=== PATIENT | female | born 1955 | race Caucasian/White ===

== ENCOUNTER 2022-07-11 15:09 | Emergency (ER) | payer MEDICARE, BC, SELFPAY ==
[2022-07-11 15:15] VITALS: BP 145/84; PULSE 81; RESP 20; O2SAT 99; BMI 25.4
--- NOTE | 2022-07-11 15:43 | ED_ITS ---
HPI - Back Pain/Injury General Date Seen: 07/11/22 Chief Complaint: Back Injury/Pain Stated Complaint: HIP/LOWER BACK INJURY Time Seen by Provider: 07/11/22 15:13 Source: patient and family Mode of arrival: ambulatory Limitations: no limitations History of Present Illness HPI Narrative: Patient is a very in nice 67-year-old female who presents here with her significant other with right-sided discomfort of her lower back. This came on yesterday while she was picking corn. And became worse today. She does not describe or endorse any significant sciatic type discomfort numbness and tin gling going to her lower extremity. She has a history of a previous herniated disc greater than 10 years ago with sciatica. She says maybe a little bit of radiation to the right frontal area of her thigh. There is no numbness or altered sensation, she denies any bowel or bladder component with this. Last night she had some mild discomfort of her right lower quadrant also. Which she describes as her normal gas. Her bowels and bladder have been normal bowel movements no dysuria frequency, she denies any history of blood in her urine. She has had no fevers or chills is been eating otherwise normal. She describes no weakness in her lower extremities. The pain when he head of precision targeting her she describes is 8 or 9/10, she took some ibuprofen yesterday which she normally does not use cut she has a history of gastric erosions. She took Tylenol today and it did seem to work as well. She is currently icing. Very loving partner is with her today. MD elicited complaint: back pain Pertinent past history: prior back pain Onset (ago): day(s) Severity: moderate Similar Symptoms Previously: Yes Quality: sharp Related Data Allergies Allergy/AdvReac Type Severity Reaction Status Date / Time bee venom protein (honey bee) Allergy Verified 07/11/22 15:15 Review of Systems Status of ROS: Reports: 10 or more systems reviewed and unremarkable except as noted in History and below PFSH PFS Social History Smoking Status: Never smoker Do you use any of these nicotine containing products: None Second hand tobacco smoke exposure: Yes (child) How often do you have a drink containing alcohol: never How often do you have six or more drinks on one occasion: Never AUDIT-C Alcohol total score: 0 Non-prescribed substance use: denies use service: No Exam Narrative: Exam Narrative: On examination she is in no apparent distress she has a normal body habitus, she is initially sitting in the chair, was able to stand, but she is bent over offloading her right leg of note. She is able to move forward flex with her hands to her mid smith, and come back up almost to neutral. But this does cause her some discomfort. He is able to heel walk and toe walk for me in the room. Straight leg raising are negative to 90? bilaterally and lying/supine she can come to 75?. Internal external rotation of her right hip is normal. With a negative Rovsing sign, reflexes are 0-4 her knees and ankle, EHLs great toe flexors ankle dorsiflexors plantar flexors knee flexors 10 sirs and hip flexors are graded 5/5 power bilaterally and her sensation is normal over lower extremities. She has what appears to be reactive scoliosis of her right lower back region. Some mild tenderness, and redness where she was icing. No percussion tenderness is noted over the spine. Her gross perianal sensation is normal. Abdominal examination was very mild tenderness of the right 1st his left lower quadrant. Bowel sounds are normal. There is no masses or hernias noted. No organomegaly. No pulsatile aortic masses are noted. Skin reveals no evidence Const: Vital Signs, click to edit/add: Vital Signs - 24 hr 07/11/22 15:15 Pulse Rate [Pulse Oximeter] 81 Respiratory Rate 20 Blood Pressure [Le ft Upper Arm] 145/84 H Pulse Oximetry 99 Oxygen Delivery Me thod Room Air Documenting provider has reviewed patient's vital signs: yes Course Vital Signs Vital signs: Initial Vital Signs Temperature Source Temporal Artery Scan 07/11/22 15:15 Pulse Rate 81 07/11/22 15:15 Pulse Rhythm 07/11/22 15:15 Respiratory Rate 20 07/11/22 15:15 Blood Pressure 145/84 H 07/11/22 15:15 Blood Pressure Mean 104 07/11/22 15:15 Blood Pressure Position Sitting 07/11/22 15:15 Pulse Oximetry 99 07/11/22 15:15 Oxygen Delivery Method 07/11/22 15:15 Vital Signs Pulse Rate 81 07/11/22 15:15 Respiratory Rate 20 07/11/22 15:15 Blood Pressure 145/84 H 07/11/22 15:15 Pulse Oximetry 99 07/11/22 15:15 Oxygen Delivery Method 07/11/22 15:15 Pulse Rate 81 07/11/22 15:15 Respiratory Rate 20 07/11/22 15:15 Blood Pressure 145/84 H 07/11/22 15:15 Pulse Oximetry 99 07/11/22 15:15 Oxygen Delivery Method 07/11/22 15:15 MDM - Back Pain/Injury MDM Narrative Medical decision making narrative: Life-threatening differential diagnosis considered include: Cauda equina an epidural abscess, other differential diagnosis considered includes sprain, contusion, nerve root entrapment, radiculopathy, muscle spasm, urolithiasis, lumbar fracture, pyelonephritis, appendicitis, biliary colic, as well as other etiologies. The patient denies saddle anesthesia bowel or bladder incontinence or lower extremity weakness, recent weight loss, or history of malignancy. Given her examination and history I think this is more likely back related, disc verses mechanical low back pain. I do not think this is related to appendicitis although she does have some mild tenderness in the right lower quadrant. A retrocecal appendix can present much the same way. I counseled her that she should watch this, she is having increasing right lower quadrant pain, anorexia, fevers chills nausea vomiting or worsening pain. We will need to get that checked out. I did offer here to do a CT scan and further workup but she declined. We discussed treatment for the back related issues, she did not want narcotics, she cannot take NSAIDs, but was agreeable to try some Flexeril. Risks benefits and side effects of this discussed. Had previously been on glucocorticoids for her back related issues and does not like the side effects. She may use Tylenol with Flexeril. Differential Diagnosis Differential diagnosis: Likely lumbar radiculopathy, sciatica, strain of lumbar region, renal colic, pyelonephritis, thoracic back pain, AAA and discitis Medical Records Attestation: I reviewed the patient's medical records. Discharge Plan Discharge Clinical Impression: Strain of lumbar region Patient Disposition: Home w/ Parent or Adult Condition: Stable Instructions: Abdominal Pain (ED), Back Pain (ED) Additional Instructions: Home rest use of Flexeril ice, may use Tylenol with this. Graded activity but decrease her activity for the next 3-4 days, increasing abdominal pain fevers chills, numbness tingling weakness bowel or bladder symptoms then I think follow-up will be needed earlier rather than later and in the emergency room. Otherwise follow-up with Dr. Shiloh Esparza, and 1-2 weeks if ongoing signs and symptoms. Activity Level: Light activity Follow Up/Referrals: Ada Beltrán MD [Primary Care Provider] - Stand Alone Forms: [employer] Info Instructions
== END 2022-07-11 16:10 | disposition home or self-care (01) ==
PROVIDERS: Emergency Provider Family Medicine; PCP Family Medicine
DX: S39.012A Strain of muscle, fascia and tendon of lower back, initial encounter (principal)
CPT/HCPCS: 99284

== ENCOUNTER 2023-11-16 02:29 | Emergency (ER) | payer MEDICARE, BC, SELFPAY ==
[2023-11-16 02:32] VITALS: BP 181/87; PULSE 99; RESP 16; TEMP 36.6; O2SAT 98; BMI 26.6
--- NOTE | 2023-11-16 02:45 | ED.GENADULT ---
HPI - General Adult General Chief complaint: Abdominal Pain Stated complaint: lower left abdominal pain Time Seen by Provider: 11/16/23 02:45 History of Present Illness HPI narrative: diarrhea X4 days off and on , went to sleep and then awoke around 0100 and felt her heart was pounding and LLQ of abd. painful/achy, concerned about diverticulitis due to having a pouch in bowel. 68-year-old woman presenting to the emergency department concern of left lower abdominal pain. Admittedly this is an area of discomfort that she presumes to be gas historically that has come and gone for years. After experiencing some heartburn about 5 days ago post holiday meal has had intermittent yellowish diarrhea since. She has been pushing fluids in feels she has managed to stay up on hydration. 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 Most pain now seems to be hemorrhoids she says. Have been bleeding. This is known. After doing some online reading in calling to insurance who advised to be seen, she has concerns about potential diverticulitis. No concerning ingestions otherwise. No fever. The pain that she had in the left lower abdomen has lessened. Historically at tends to radiate around to her back somewhat. She does not describe exacerbating or relieving factors. 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 On colonoscopy in the past she thinks there was a diverticulum Most concerning is that apparently her father apparently had severe complications from diverticular disease Related Data Home Medications Medication Instructions Recorded Confirmed famotidine 20 mg tablet (Pepcid AC) 20 mg PO BID 11/16/23 11/16/23 Allergies Allergy/AdvReac Type Severity Reaction Status Date / Time bee venom protein (honey bee) Allergy Verified 07/11/22 15:15 Review of Systems Status of ROS: Reports: 6 or more systems reviewed and unremarkable except as noted in History and below [facility] Social History Smoking Status: Never smoker Do you use any of these nicotine containing products: None Second hand tobacco smoke exposure: Yes (child) How often do you have a drink containing alcohol: never How often do you have six or more drinks on one occasion: Never AUDIT-C Alcohol total score: 0 Non-prescribed substance use: denies use service: No Exam Narrative: Exam Narrative: Pleasantly talkative. Transitioning clearly uncomfortably. Oropharynx is sticky. Lungs are clear. Heart in elevated rate and regular rhythm. Abdomen with bowel sounds present. She diffusely soft and not particularly tender. There is no flank pain either. Rectal/anal exam was not done. Extremities are well perfused without edema. Skin is warm and dry. Moving all extremities without difficulty; only challenged in transition because of hemorrhoids being flared she says. Const: Vital Signs, click to edit/add: Vital Signs - 24 hr 11/16/23 02:32 Temperature 97.9 F Pulse Rate [Pulse Oximeter] 99 Respiratory Rate 16 Blood Pressure [Ri ght Upper Arm] 181/87 H Pulse Oximetry 98 Oxygen Delivery Me thod Room Air Documenting provider has reviewed patient's vital signs: yes Course Vital Signs Vital signs: Initial Vital Signs Temperature 97.9 F 11/16/23 02:32 Temperature Source Temporal Artery Scan 11/16/23 02:32 Pulse Rate 99 11/16/23 02:32 Respiratory Rate 16 11/16/23 02:32 Blood Pressure 181/87 H 11/16/23 02:32 Blood Pressure Mean 118 H 11/16/23 02:32 Blood Pressure Position Sitting 11/16/23 02:32 Pulse Oximetry 98 11/16/23 02:32 Oxygen Delivery Method Room Air 11/16/23 02:32 Vital Signs Temperature 97.9 F 11/16/23 02:32 Pulse Rate 99 11/16/23 02:32 Respiratory Rate 16 11/16/23 02:32 Blood Pressure 181/87 H 11/16/23 02:32 Pulse Oximetry 98 11/16/23 02:32 Oxygen Delivery Method Room Air 11/16/23 02:32 Temperature 97.9 F 11/16/23 02:32 Pulse Rate 98 11/16/23 04:28 Respiratory Rate 16 11/16/23 04:28 Blood Pressure 161/79 H 11/16/23 04:28 Pulse Oximetry 96 11/16/23 04:28 Oxygen Delivery Method Room Air 11/16/23 04:28 Medications Administered Medications: Discontinued Medications Generic Name Dose Route Start Last Admin Trade Name Freq PRN Reason Stop Dose Admin Sodium Chloride 1,000 mls @ 1,000 mls/hr 11/16/23 03:29 11/16/23 05:02 0.9 % Sodium Chloride 1000 Ml IV 11/16/23 04:28 Infused .Q1H ONE Infusion Medical Decision Making MDM Narrative Medical decision making narrative: I do not know if there was some SVT that occurred this morning or maybe attack of anxiety. I am reassured by abdominal exam at this point. Pain is not exactly reproducible. I think more likely there is some prolonged diarrhea. Certainly could be colitis. Not exactly consistent with diverticulitis. I suppose hemorrhoidal pain could be referring somewhat. I proposed checking labs and depending on white count and inflammatory markers and absent reproducible abdominal pain perhaps this would be enough? After further discussion becomes apparent that will need more sure answer and will proceed with labs fluids and CT imaging. Does not feel she needs anything for nausea or pain at this time. White count is reassuring. Return to discuss. They are still anticipating imaging. Still without need for antiemetic or pain management. We did discuss assessment and potential hemorrhoidectomy/thrombectomy. She is concerned about making things worse. CT imaging abdomen and pelvis IV contrast reviewed by me I appreciate full bladder but not excessive. Appears to have normal bladder wall. There is seems to be some generalized thickening of the wall of the colon. I do not see pericolonic inflammation. Has not had any further event or worsening tachycardia or dysrhythmia Radiology over-read IMPRESSION: 1. Mild pancolonic wall thickening which may be partially due to incomplete distension. However, finding raises suspicion for nonspecific infectious/inflammatory colitis. Query mild more focal circumferential wall thickening of the cecum for which underlying lesion cannot be excluded. Recommend correlation with colonoscopy history. 2. Colonic diverticulosis without evidence of acute diverticulitis. 3. Mild left hydroureteronephrosis without evidence of nephroureterolithiasis. Discussed radiology over-read/findings. Is due this summer for colonoscopy. Clinical picture I think is more consistent with colitis than more indolent or malignant process. Diverticulosis confirmed on imaging. No diverticulitis Blood in urine but no indication of infection otherwise. This may be due to hemorrhoidal or colitis-related bleeding Discussing discharge she would like to have some medications available for pain management if necessary See patient discharge plan Medical Records Medical records reviewed: Yes I reviewed the patient's medical records Lab Data Lab results reviewed: Yes I reviewed the patient's lab results Labs: Lab Results 11/16/23 11/16/23 Range/Units 03:43 04:10 WBC 8.94 (4.50-11.00) K/uL RBC 4.50 (4.00-5.20) m/uL Hgb 12.9 (12.0-16.0) gm/dL Hct 38.5 (33.0-51.0) % MCV 86 (80-100) fL MCH 29 (26-34) pg MCHC 34 (32-36) gm/dL RDW Coeff of Emre 12.6 (11.5-15.5) % Plt Count 261 (140-440) K/uL Neut % (Auto) 78.2 H (42.0-72.0) % Lymph % (Auto) 12.5 L (20-44) % Robeson % (Auto) 7.0 (0.0-11.0) % Eos % (Auto) 1.8 (0.0-7.0) % Baso % (Auto) 0.4 (0.0-3.0) % Neut # (Auto) 7.00 (1.7-7.0) K/uL Lymph # (Auto) 1.10 (0.90-2.90) K/uL [place]eson # (Auto) 0.60 (0.00-0.90) K/UL Eos # (Auto) 0.16 (0.00-0.50) K/uL Baso # (Auto) 0.04 (0.00-0.30) K/uL Abs Immat Gran (auto) 0.01 (0.00-0.30) K/uL Imm/Tot Granulo (auto) 0.1 % Sodium 138 (135-149) mmol/L Potassium 3.9 (3.6-5.1) mmol/L Chloride 105 (96-114) mmol/L Carbon Dioxide 23 (20-32) mmol/L Anion Gap 10 (7-15) mEq/L BUN 16 (7-30) mg/dL Creatinine 0.6 (0.5-1.5) mg/dL Estimated Creat Clear 51.11 Estimated GFR 98 ml/min Glucose 120 H (60-115) mg/dL Calcium 9.5 (8.4-10.6) mg/dL C-Reactive Protein 0.7 (0.5-1.0) mg/dL Urine Color Yellow (Yellow) Urine Appearance Clear (Clear) Urine pH 6.0 (5.0-8.5) Ur Specific [place] <= 1.005 (1.000-1.030) Urine Protein Negative (Negative) Urine Glucose (UA) Negative (Negative) Urine Ketones Negative (Negative) Urine Blood 2+ A (Negative) Urine Nitrite Negative (Negative) Urine Bilirubin Negative (Negative) Urine Urobilinogen 0.2 (0.2-1.0) Ur Leukocyte Esterase Negative (Negative) Urine RBC 0-2 (0-2) Urine WBC 0-2 (0-5) Ur Squamous Epith Cells Few (None-Few) Urine Bacteria None (None) Discharge Plan Discharge Clinical Impression: Colitis, Abdominal pain, Diarrhea Patient Disposition: Home w/ Parent or Adult Condition: Stable Additional Instructions: Focus on hydration. Slow advance of diet over the next couple of days. Diluted juices and soup broths. Crackers, rice, toast. Be seen again otherwise for more severe, intractable vomiting, persistent and worsening abdominal pain, associated fever. Loperamide can be helpful for diarrhea however usually not recommended if there is also fever or associated blood; I think it is hard to tell that there isn't blood associated with this colitis. Jefferson from [facility] Prescriptions: No Action famotidine [Pepcid AC] 20 mg tablet 20 mg PO BID Follow Up/Referrals: Ada Beltrán MD [Primary Care Provider] - Stand Alone Forms: [employer] Info Instructions
--- NOTE | 2023-11-16 03:29 | CRLHL7_ITS ---
For Patients: As a result of the Century Cures Act, medical imaging exams and procedure reports are released immediately into your electronic medical record. You may view this report before your referring provider. If you have questions, please contact your health care provider. INDICATION: Intermittent diarrhea x 4 days-yellow bile like. Woke about 0100 with LLQ pain/achy TECHNIQUE: CT abdomen and pelvis with 81 cc Isovue 370 IV contrast. COMPARISON: CT abdomen pelvis June 08, 2021. FINDINGS: The liver is normal in size, shape and attenuation. Gallbladder and biliary tree are normal. The spleen, adrenal glands and pancreas are within normal limits. Mild left hydroureteronephrosis without evidence of nephroureterolithiasis. Pelvic phleboliths are again noted. No right-sided hydronephrosis. Kidneys appear unremarkable otherwise. No bladder wall thickening. No evidence of bowel obstruction. Mild pancolonic wall thickening which may be partially due to incomplete distension. However, finding raises suspicion for nonspecific infectious/inflammatory colitis. Query mild more focal circumferential wall thickening of the cecum for wedge underlying lesion cannot be excluded. Recommend correlation with colonoscopy history. Colonic diverticulosis without evidence of acute diverticulitis. Appendix appears unremarkable. No significant free fluid and no free air. Pelvic organs are unremarkable. The lower chest is unremarkable. IMPRESSION: 1. Mild pancolonic wall thickening which may be partially due to incomplete distension. However, finding raises suspicion for nonspecific infectious/inflammatory colitis. Query mild more focal circumferential wall thickening of the cecum for which underlying lesion cannot be excluded. Recommend correlation with colonoscopy history. 2. Colonic diverticulosis without evidence of acute diverticulitis. 3. Mild left hydroureteronephrosis without evidence of nephroureterolithiasis. Please note that all CT scans at this facility use dose modulation, iterative reconstruction, and/or weight-based dosing when appropriate to reduce radiation dose to as low as reasonably achievable. Dictated by Chris Cabrera MD @ 11/16/2023 5:16:51 AM (Electronically Signed)
[2023-11-16] MEDS: 0.9 % SODIUM CHLORIDE 1000 ml 1,000 ML IV (03:30)
[2023-11-16 03:51] LABS: Basophils Absolute Auto 0.04 K/uL (0.00-0.30); Basophils Percent Auto 0.4 % (0.0-3.0); Eosinophils Absolute Auto 0.16 K/uL (0.00-0.50); Eosinophils Percent Auto 1.8 % (0.0-7.0); Hematocrit 38.5 % (33.0-51.0); Hemoglobin* 12.9 gm/dL (12.0-16.0); Immature Granulocytes Abs Auto 0.01 K/uL (0.00-0.30); Immature Granulocytes Pct Auto 0.1 %; Lymphocytes Percent Auto 12.5 % (20-44); Mean Corpuscular HGB Conc 34 gm/dL (32-36); Mean Corpuscular Hemoglobin 29 pg (26-34); Mean Corpuscular Volume 86 fL (80-100); Neutrophils Percent Auto 78.2 % (42.0-72.0); Platelet Count* 261 K/uL (140-440); RDW Coefficient of Variation % 12.6 % (11.5-15.5); White Blood Count* 8.94 K/uL (4.50-11.00)
[2023-11-16 03:52] LABS: Slide Review Reflex No
[2023-11-16 04:03] LABS: Chloride* 105 mmol/L (96-114); Potassium* 3.9 mmol/L (3.6-5.1); Sodium* 138 mmol/L (135-149)
[2023-11-16 04:06] LABS: Anion Gap 10 mEq/L (7-15); Blood Urea Nitrogen* 16 mg/dL (7-30); Carbon Dioxide* 23 mmol/L (20-32); Creatinine* 0.6 mg/dL (0.5-1.5); Est. Creatinine Clearance* 51.11; Estimated Glomerular Filt Rate 98 ml/min; Glucose* 120 mg/dL (60-115)
[2023-11-16 04:07] LABS: Calcium* 9.5 mg/dL (8.4-10.6)
[2023-11-16 04:09] LABS: C Reactive Protein* 0.7 mg/dL (0.5-1.0)
[2023-11-16 04:18] LABS: Appearance Urine Clear (Clear); Bilirubin Urine Negative (Negative); Blood Urine 2+ (Negative); Color Urine Yellow (Yellow); Glucose Urine Negative (Negative); Ketones Urine Negative (Negative); Leukocyte Esterase Urine Negative (Negative); Nitrite Urine Negative (Negative); Protein Urine Negative (Negative); Specific Gravity Urine <= 1.005 (1.000-1.030); Urobilinogen Urine 0.2 (0.2-1.0)
[2023-11-16 04:28] VITALS: BP 161/79; PULSE 98; RESP 16; O2SAT 96
[2023-11-16 04:30] LABS: RBC Urine 0-2 (0-2); Squamous Epithelial Cell Urine Few (None-Few); WBC Urine 0-2 (0-5)
--- NOTE | 2023-11-16 05:52 | PC.NURSE ---
patient DC ambulatory accompanied by , pain controlled, patient alert and ambulatory. no further questions about DC instructions from patient or .
== END 2023-11-16 05:51 | disposition home or self-care (01) ==
PROVIDERS: Emergency Provider Family Medicine; PCP Family Medicine
DX: K52.9 Noninfective gastroenteritis and colitis, unspecified (principal); R19.7 Diarrhea, unspecified
CPT/HCPCS: 36415; 74177; 80048; 81001; 85025; 86140; 99284; J7030; Q9967

== ENCOUNTER 2024-12-27 13:45 | Outpatient (RCR) | payer MEDICARE, BC, SELFPAY | END 2025-04-26 23:59 | disposition home or self-care (01) | PROVIDERS: PCP Family Medicine; Visit Provider Student in an Organized Health Care Education/Training Program | DX: M25.561 Pain in right knee (principal); G89.29 Other chronic pain; Z98.890 Other specified postprocedural states; Z51.89 Encounter for other specified aftercare | CPT/HCPCS: 97110; 97161 ==

== ENCOUNTER 2025-02-10 06:31 | Outpatient (CLI) | payer MEDICARE, BC, SELFPAY | END 2025-02-10 06:32 | disposition home or self-care (01) | LOC: AMB 02-13 08:45 | PROVIDERS: PCP Family Medicine; Visit Provider Family Medicine | DX: R07.9 Chest pain, unspecified (principal); R11.0 Nausea | CPT/HCPCS: A0425; A0433 ==

== ENCOUNTER 2025-02-10 07:09 | Emergency (ER) | payer MEDICARE, BC, SELFPAY ==
[2025-02-10] VITALS (14 sets, daily range): BP systolic 163–172; BP diastolic 75–82; PULSE 79–89; RESP 4–51; TEMP 36.4; O2SAT 93–97; BMI 26.1
--- NOTE | 2025-02-10 07:11 | ED.GENADULT ---
HPI - General Adult General Time Seen by Provider: 07:11 <Ish Felix MD - Last Filed: 02/15/25 23:39> Date Seen: 02/10/25 <Ish Felix MD - Last Filed: 02/15/25 23:39> Chief complaint: Chest Pain <Ish Felix MD - Last Filed: 02/15/25 23:39> Stated complaint: Chest pain <Ish Felix MD - Last Filed: 02/15/25 23:39> Time Seen by Provider: 02/10/25 07:11 <Ish Felix MD - Last Filed: 02/15/25 23:39> Source: patient, EMS, RN notes reviewed and old records reviewed <Ish Felix MD - Last Filed: 02/15/25 23:39> Mode of arrival: ambulatory <Ish Felix MD - Last Filed: 02/15/25 23:39> Limitations: no limitations <Ish Felix MD - Last Filed: 02/15/25 23:39> History of Present Illness HPI narrative: 69-year-old female who comes in today with malaise and nausea. patient reports she felt fine when she went to sleep at about 11:00 p.m. last night, woke up around 4:00 a.m. generally not feeling well although vague about her symptoms, nausea without vomiting. Denies chest pain, abdominal pain, numbness or tingling in the arms or legs, weakness, vision changes, difficulty walking, palpitations. Does have a slight generalized headache but says that is normal for her, she also says she frequently gets nausea. Denies any other recent illness, no new medications. <Ish Felix MD - Last Filed: 02/15/25 23:39> Related Data Allergies/adverse reactions: Allergies Allergy/AdvReac Type Severity Reaction Status Date / Time bee venom protein (honey bee) Allergy Verified 02/10/25 07:18 <Ish Felix MD - Last Filed: 02/15/25 23:39> PFSH PFSH Social History: Social History Smoking Status: Never smoker Do you use any of these nicotine containing products: None Second hand tobacco smoke exposure: Yes (child) How often do you have a drink containing alcohol: never How often do you have six or more drinks on one occasion: Never AUDIT-C Alcohol total score: 0 Non-prescribed substance use: denies use service: No <Ish Felix MD - Last Filed: 02/15/25 23:39> Exam Narrative: Exam Narrative: General: Well-developed and well-nourished, no acute distress Head: Atraumatic and normocephalic Eyes: Pupils are equal reactive, extraocular motions intact, conjunctiva clear ENT: External nose and ears are normal, posterior pharynx without erythema or exudate Neck: No midline cervical tenderness, full spontaneous range of motion the neck, trachea midline, no adenopathy Heart: Regular rate and rhythm no murmurs or thrills Lungs: Clear to auscultation bilaterally without wheezes or crackles Abdomen: Soft, nontender, nondistended with active bowel sounds Musculoskeletal: No tenderness, deformity, or edema Neurologic: Awake, alert, and oriented x3, no gross focal neurologic deficits, cranial nerves intact as tested Psych: Mood and affect are appropriate Skin: No rashes <Ish Felix MD - Last Filed: 02/15/25 23:39> Const: Vital Signs, click to edit/add: Vital Signs - 24 hr 02/10/25 07:15 02/10/25 07:27 02/10/25 07:30 Temperature 97.6 F Pulse Rate 79 80 Pulse Rate [Pulse Oximeter] 80 Respiratory Rate 14 11 L 14 Blood Pressure Blood Pressure [Ri ght Upper Arm] 163/75 H Pulse Oximetry 96 93 96 Oxygen Delivery Me thod Room Air 02/10/25 07:52 02/10/25 07:54 02/10/25 08:00 Temperature Pulse Rate 89 83 83 Pulse Rate [Pulse Oximeter] Respiratory Rate 35 H 10 L 4 L Blood Pressure 168/82 H Blood Pressure [Ri ght Upper Arm] Pulse Oximetry 95 96 93 Oxygen Delivery Me thod 02/10/25 08:15 02/10/25 08:30 02/10/25 08:42 Temperature Pulse Rate 88 Pulse Rate [Pulse Oximeter] Respiratory Rate 51 H 33 H 14 Blood Pressure 172/82 H Blood Pressure [Ri ght Upper Arm] Pulse Oximetry 97 Oxygen Delivery Me thod 02/10/25 08:45 Temperature Pulse Rate 80 Pulse Rate [Pulse Oximeter] Respiratory Rate 12 Blood Pressure Blood Pressure [Ri ght Upper Arm] Pulse Oximetry 95 Oxygen Delivery Me thod <Ish Felix MD - Last Filed: 02/15/25 23:39> Vital Signs, click to edit/add: Vital Signs - 24 hr 02/10/25 07:15 02/10/25 07:27 02/10/25 07:30 Temperature 97.6 F Pulse Rate 79 80 Pulse Rate [Pulse Oximeter] 80 Respiratory Rate 14 11 L 14 Blood Pressure Blood Pressure [Ri ght Upper Arm] 163/75 H Pulse Oximetry 96 93 96 Oxygen Delivery Me thod Room Air 02/10/25 07:52 02/10/25 07:54 02/10/25 08:00 Temperature Pulse Rate 89 83 83 Pulse Rate [Pulse Oximeter] Respiratory Rate 35 H 10 L 4 L Blood Pressure 168/82 H Blood Pressure [Ri ght Upper Arm] Pulse Oximetry 95 96 93 Oxygen Delivery Me thod 02/10/25 08:15 02/10/25 08:30 02/10/25 08:42 Temperature Pulse Rate 88 Pulse Rate [Pulse Oximeter] Respiratory Rate 51 H 33 H 14 Blood Pressure 172/82 H Blood Pressure [Ri ght Upper Arm] Pulse Oximetry 97 Oxygen Delivery Me thod 02/10/25 08:45 Temperature Pulse Rate 80 Pulse Rate [Pulse Oximeter] Respiratory Rate 12 Blood Pressure Blood Pressure [Ri ght Upper Arm] Pulse Oximetry 95 Oxygen Delivery Me thod <Josselin Sarmiento MD - Last Filed: 02/10/25 09:38> Course Course ED Course: Reviewed primary care visit from August 2024 which was a Medicare annual physical, at that time was complaining of right thumb pain as well as some various arthralgias. Also noted history of vestibular migraine with lightheadedness managed with meclizine. Patient presents by EMS with vague not feeling well. Nausea with no vomiting. Denies chest pain, shortness of breath, abdominal pain, dizziness, lightheadedness, palpitations. Patient was given aspirin, Zofran 8 mg, fentanyl 100 mcg, droperidol 1.25 mg, and morphine 2 mg in route. On exam here, no focal neurologic findings, patient is vitally stable, heart is regular. Labs ordered along with head CT. <Ish Felix MD - Last Filed: 02/15/25 23:39> Reevaluation(s) Time of Reevaluation #1: 07:51 <Ish Felix MD - Last Filed: 02/15/25 23:39> Reevaluation #1: EKG independently interpreted by me with NSR rate 80, no acute ST changes, normal axis, normal intervals, [place] 150, QTc 429, no prior for comparison. <Ish Felix MD - Last Filed: 02/15/25 23:39> Vital Signs Vital signs: Initial Vital Signs Temperature 97.6 F 02/10/25 07:15 Temperature Source Temporal Artery Scan 02/10/25 07:15 Pulse Rate 80 02/10/25 07:15 Respiratory Rate 14 02/10/25 07:15 Blood Pressure 163/75 H 02/10/25 07:15 Blood Pressure Mean 104 02/10/25 07:15 Blood Pressure Position Sitting 02/10/25 07:15 Pulse Oximetry 96 02/10/25 07:15 Oxygen Delivery Method Room Air 02/10/25 07:15 Vital Signs Temperature 97.6 F 02/10/25 07:15 Pulse Rate 80 02/10/25 07:15 Respiratory Rate 14 02/10/25 07:15 Blood Pressure 163/75 H 02/10/25 07:15 Pulse Oximetry 96 02/10/25 07:15 Oxygen Delivery Method Room Air 02/10/25 07:15 Temperature 97.6 F 02/10/25 07:15 Pulse Rate 80 02/10/25 08:45 Respiratory Rate 20 02/10/25 09:45 Blood Pressure 172/82 H 02/10/25 08:42 Pulse Oximetry 95 02/10/25 08:45 Oxygen Delivery Method Room Air 02/10/25 07:15 <Ish Felix MD - Last Filed: 02/15/25 23:39> Initial Vital Signs Temperature 97.6 F 02/10/25 07:15 Temperature Source Temporal Artery Scan 02/10/25 07:15 Pulse Rate 80 02/10/25 07:15 Respiratory Rate 14 02/10/25 07:15 Blood Pressure 163/75 H 02/10/25 07:15 Blood Pressure Mean 104 02/10/25 07:15 Blood Pressure Position Sitting 02/10/25 07:15 Pulse Oximetry 96 02/10/25 07:15 Oxygen Delivery Method Room Air 02/10/25 07:15 Vital Signs Temperature 97.6 F 02/10/25 07:15 Pulse Rate 80 02/10/25 07:15 Respiratory Rate 14 02/10/25 07:15 Blood Pressure 163/75 H 02/10/25 07:15 Pulse Oximetry 96 02/10/25 07:15 Oxygen Delivery Method Room Air 02/10/25 07:15 Temperature 97.6 F 02/10/25 07:15 Pulse Rate 80 02/10/25 08:45 Respiratory Rate 20 02/10/25 09:45 Blood Pressure 172/82 H 02/10/25 08:42 Pulse Oximetry 95 02/10/25 08:45 Oxygen Delivery Method Room Air 02/10/25 07:15 <Josselin Sarmiento MD - Last Filed: 02/10/25 09:38> Medical Decision Making MDM Narrative Medical decision making narrative: Presents to follow-up on the results from the workup today. Patient states that she woke up around 4:00 a.m. in the morning and felt a lot of burning in her stomach. She states that this happens periodically. But it made her feel very uncomfortable. She then felt very jittery and felt that her heartbeat was beating faster than normal. This lasted for about 2 hours when she finally woke up her and asked him to bring her to the emergency department for evaluation. She was not having chest pain or shortness of breath. She tells me that this has happened to her before where she feels very jittery and feels like her heart is beating faster or ?thumping in her chest?. Her states that this in fact has happened a few times. She has not checked her pulse when this happens. Again, never makes her feel dizzy, lightheaded, short of breath. Does not cause chest pain. She states that she has had gastric ulcerations in the past has been on Prilosec and Pepcid before but she does not like to take those medications. Her workup today was unremarkable. This included blood work, urine and head CT. Patient felt reassured by the results. Discussed with her that she likely should start taking Pepcid or Zantac for the next few days patient does not want to take Prilosec as it did not make her feel well. I also recommend that she follow up with her primary care provider to discuss the episodes where she feels jittery. Patient felt comfortable with everything we discussed had no other questions or concerns. Differential diagnoses includes gastritis, peptic ulcer disease, anxiety. Cannot rule out cardiac arrhythmia such as paroxysmal atrial fibrillation, although unlikely given the fact that she felt this while in the ambulance with a normal cardiac tracing. Perhaps doing a ZIO patch would be something she should consider with her primary care provider. <Josselin Sarmiento MD - Last Filed: 02/10/25 09:38> Lab Data Lab results reviewed: Yes I reviewed the patient's lab results <Josselin Sarmiento MD - Last Filed: 02/10/25 09:38> Labs: Lab Results 02/10/25 02/10/25 02/10/25 Range/Units 07:25 07:30 07:35 WBC 8.32 (4.50-11.00) K/uL RBC 4.49 (4.00-5.20) m/uL Hgb 12.9 (12.0-16.0) gm/dL Hct 38.6 (33.0-51.0) % MCV 86 (80-100) fL MCH 29 (26-34) pg MCHC 33 (32-36) gm/dL RDW Coeff of Emre 12.8 (11.5-15.5) % Plt Count 255 (140-440) K/uL Neut % (Auto) 78.7 H (42.0-72.0) % Lymph % (Auto) 14.7 L (20-44) % Free[place] % (Auto) 5.0 (0.0-11.0) % Eos % (Auto) 1.1 (0.0-7.0) % Baso % (Auto) 0.4 (0.0-3.0) % Neut # (Auto) 6.50 (1.7-7.0) K/uL Lymph # (Auto) 1.20 (0.90-2.90) K/uL Free[place] # (Auto) 0.40 (0.00-0.90) K/UL Eos # (Auto) 0.09 (0.00-0.50) K/uL Baso # (Auto) 0.03 (0.00-0.30) K/uL Abs Immat Gran (auto) 0.01 (0.00-0.30) K/uL Imm/Tot Granulo (auto) 0.1 % VBG pH 7.408 (7.32-7.43) VBG pCO2 44 (40-50) mmHG VBG pO2 72.3 H (25-47) mmHG VBG HCO3 28 (21-28) mmol/L Sodium 137 (135-149) mmol/L Potassium 3.6 (3.6-5.1) mmol/L Chloride 102 (96-114) mmol/L Carbon Dioxide 28 (20-32) mmol/L Anion Gap 7 (7-15) mEq/L BUN 18 (7-30) mg/dL Creatinine 0.6 (0.5-1.5) mg/dL Estimated Creat Clear 50.41 Estimated GFR 98 ml/min Glucose 123 H (60-115) mg/dL Calcium 9.0 (8.4-10.6) mg/dL Magnesium 1.7 (1.5-2.6) mg/dL Total Bilirubin 0.5 (0.1-1.5) mg/dL Direct Bilirubin 0.3 (0.0-0.5) mg/dL AST 32 (12-35) U/L ALT 24 (4-35) U/L Alkaline Phosphatase 75 (40-150) U/L Ammonia < 8.7 L (13.1-30.0) umol/L Total Protein 7.2 (6.0-8.3) g/dL Albumin 4.4 (3.3-5.0) g/dL Urine Color (Yellow) Urine Appearance (Clear) Urine pH (5.0-8.5) Ur Specific Maskell (1.000-1.030) Urine Protein (Negative) Urine Glucose (UA) (Negative) Urine Ketones (Negative) Urine Blood (Negative) Urine Nitrite (Negative) Urine Bilirubin (Negative) Urine Urobilinogen (0.2-1.0) Ur Leukocyte Esterase (Negative) Urine RBC (0-2) Urine WBC (0-5) Ur Squamous Epith Cells (None-Few) Urine Bacteria (None) SARS-CoV-2 (PCR) Negative SARS-CoV-2 (Negative) Influenza Type A (PCR) Negative PCR FLU A (Negative) Influenza Type B (PCR) Negative PCR FLU B (Negative) RSV (PCR) Negative PCR RSV (Negative) POC Troponin I 0.00 L (0.01-0.04) ng/ml 02/10/25 Range/Units 08:38 WBC (4.50-11.00) K/uL RBC (4.00-5.20) m/uL Hgb (12.0-16.0) gm/dL Hct (33.0-51.0) % MCV (80-100) fL MCH (26-34) pg MCHC (32-36) gm/dL RDW Coeff of Emre (11.5-15.5) % Plt Count (140-440) K/uL Neut % (Auto) (42.0-72.0) % Lymph % (Auto) (20-44) % Freeborn % (Auto) (0.0-11.0) % Eos % (Auto) (0.0-7.0) % Baso % (Auto) (0.0-3.0) % Neut # (Auto) (1.7-7.0) K/uL Lymph # (Auto) (0.90-2.90) K/uL [place] # (Auto) (0.00-0.90) K/UL Eos # (Auto) (0.00-0.50) K/uL Baso # (Auto) (0.00-0.30) K/uL Abs Immat Gran (auto) (0.00-0.30) K/uL Imm/Tot Granulo (auto) % VBG pH (7.32-7.43) VBG pCO2 (40-50) mmHG VBG pO2 (25-47) mmHG VBG HCO3 (21-28) mmol/L Sodium (135-149) mmol/L Potassium (3.6-5.1) mmol/L Chloride (96-114) mmol/L Carbon Dioxide (20-32) mmol/L Anion Gap (7-15) mEq/L BUN (7-30) mg/dL Creatinine (0.5-1.5) mg/dL Estimated Creat Clear Estimated GFR ml/min Glucose (60-115) mg/dL Calcium (8.4-10.6) mg/dL Magnesium (1.5-2.6) mg/dL Total Bilirubin (0.1-1.5) mg/dL Direct Bilirubin (0.0-0.5) mg/dL AST (12-35) U/L ALT (4-35) U/L Alkaline Phosphatase (40-150) U/L Ammonia (13.1-30.0) umol/L Total Protein (6.0-8.3) g/dL Albumin (3.3-5.0) g/dL Urine Color Yellow (Yellow) Urine Appearance Clear (Clear) Urine pH 6.5 (5.0-8.5) Ur Specific Maskell 1.020 (1.000-1.030) Urine Protein Negative (Negative) Urine Glucose (UA) Negative (Negative) Urine Ketones Negative (Negative) Urine Blood Trace-intact A (Negative) Urine Nitrite Negative (Negative) Urine Bilirubin Negative (Negative) Urine Urobilinogen 0.2 (0.2-1.0) Ur Leukocyte Esterase Trace A (Negative) Urine RBC 0-2 (0-2) Urine WBC 0-2 (0-5) Ur Squamous Epith Cells Moderate A (None-Few) Urine Bacteria Moderate A (None) SARS-CoV-2 (PCR) (Negative) Influenza Type A (PCR) (Negative) Influenza Type B (PCR) (Negative) RSV (PCR) (Negative) POC Troponin I (0.01-0.04) ng/ml <Ish Felix MD - Last Filed: 02/15/25 23:39> Lab Results 02/10/25 02/10/25 02/10/25 Range/Units 07:25 07:30 07:35 WBC 8.32 (4.50-11.00) K/uL RBC 4.49 (4.00-5.20) m/uL Hgb 12.9 (12.0-16.0) gm/dL Hct 38.6 (33.0-51.0) % MCV 86 (80-100) fL MCH 29 (26-34) pg MCHC 33 (32-36) gm/dL RDW Coeff of Emre 12.8 (11.5-15.5) % Plt Count 255 (140-440) K/uL Neut % (Auto) 78.7 H (42.0-72.0) % Lymph % (Auto) 14.7 L (20-44) % Freeborn % (Auto) 5.0 (0.0-11.0) % Eos % (Auto) 1.1 (0.0-7.0) % Baso % (Auto) 0.4 (0.0-3.0) % Neut # (Auto) 6.50 (1.7-7.0) K/uL Lymph # (Auto) 1.20 (0.90-2.90) K/uL Free[place] # (Auto) 0.40 (0.00-0.90) K/UL Eos # (Auto) 0.09 (0.00-0.50) K/uL Baso # (Auto) 0.03 (0.00-0.30) K/uL Abs Immat Gran (auto) 0.01 (0.00-0.30) K/uL Imm/Tot Granulo (auto) 0.1 % VBG pH 7.408 (7.32-7.43) VBG pCO2 44 (40-50) mmHG VBG pO2 72.3 H (25-47) mmHG VBG HCO3 28 (21-28) mmol/L Sodium 137 (135-149) mmol/L Potassium 3.6 (3.6-5.1) mmol/L Chloride 102 (96-114) mmol/L Carbon Dioxide 28 (20-32) mmol/L Anion Gap 7 (7-15) mEq/L BUN 18 (7-30) mg/dL Creatinine 0.6 (0.5-1.5) mg/dL Estimated Creat Clear 50.41 Estimated GFR 98 ml/min Glucose 123 H (60-115) mg/dL Calcium 9.0 (8.4-10.6) mg/dL Magnesium 1.7 (1.5-2.6) mg/dL Total Bilirubin 0.5 (0.1-1.5) mg/dL Direct Bilirubin 0.3 (0.0-0.5) mg/dL AST 32 (12-35) U/L ALT 24 (4-35) U/L Alkaline Phosphatase 75 (40-150) U/L Ammonia < 8.7 L (13.1-30.0) umol/L Total Protein 7.2 (6.0-8.3) g/dL Albumin 4.4 (3.3-5.0) g/dL Urine Color (Yellow) Urine Appearance (Clear) Urine pH (5.0-8.5) Ur Specific Maskell (1.000-1.030) Urine Protein (Negative) Urine Glucose (UA) (Negative) Urine Ketones (Negative) Urine Blood (Negative) Urine Nitrite (Negative) Urine Bilirubin (Negative) Urine Urobilinogen (0.2-1.0) Ur Leukocyte Esterase (Negative) Urine RBC (0-2) Urine WBC (0-5) Ur Squamous Epith Cells (None-Few) Urine Bacteria (None) SARS-CoV-2 (PCR) Negative SARS-CoV-2 (Negative) Influenza Type A (PCR) Negative PCR FLU A (Negative) Influenza Type B (PCR) Negative PCR FLU B (Negative) RSV (PCR) Negative PCR RSV (Negative) POC Troponin I 0.00 L (0.01-0.04) ng/ml 02/10/25 Range/Units 08:38 WBC (4.50-11.00) K/uL RBC (4.00-5.20) m/uL Hgb (12.0-16.0) gm/dL Hct (33.0-51.0) % MCV (80-100) fL MCH (26-34) pg MCHC (32-36) gm/dL RDW Coeff of Emre (11.5-15.5) % Plt Count (140-440) K/uL Neut % (Auto) (42.0-72.0) % Lymph % (Auto) (20-44) % Free[place] % (Auto) (0.0-11.0) % Eos % (Auto) (0.0-7.0) % Baso % (Auto) (0.0-3.0) % Neut # (Auto) (1.7-7.0) K/uL Lymph # (Auto) (0.90-2.90) K/uL [place] # (Auto) (0.00-0.90) K/UL Eos # (Auto) (0.00-0.50) K/uL Baso # (Auto) (0.00-0.30) K/uL Abs Immat Gran (auto) (0.00-0.30) K/uL Imm/Tot Granulo (auto) % VBG pH (7.32-7.43) VBG pCO2 (40-50) mmHG VBG pO2 (25-47) mmHG VBG HCO3 (21-28) mmol/L Sodium (135-149) mmol/L Potassium (3.6-5.1) mmol/L Chloride (96-114) mmol/L Carbon Dioxide (20-32) mmol/L Anion Gap (7-15) mEq/L BUN (7-30) mg/dL Creatinine (0.5-1.5) mg/dL Estimated Creat Clear Estimated GFR ml/min Glucose (60-115) mg/dL Calcium (8.4-10.6) mg/dL Magnesium (1.5-2.6) mg/dL Total Bilirubin (0.1-1.5) mg/dL Direct Bilirubin (0.0-0.5) mg/dL AST (12-35) U/L ALT (4-35) U/L Alkaline Phosphatase (40-150) U/L Ammonia (13.1-30.0) umol/L Total Protein (6.0-8.3) g/dL Albumin (3.3-5.0) g/dL Urine Color Yellow (Yellow) Urine Appearance Clear (Clear) Urine pH 6.5 (5.0-8.5) Ur Specific Maskell 1.020 (1.000-1.030) Urine Protein Negative (Negative) Urine Glucose (UA) Negative (Negative) Urine Ketones Negative (Negative) Urine Blood Trace-intact A (Negative) Urine Nitrite Negative (Negative) Urine Bilirubin Negative (Negative) Urine Urobilinogen 0.2 (0.2-1.0) Ur Leukocyte Esterase Trace A (Negative) Urine RBC 0-2 (0-2) Urine WBC 0-2 (0-5) Ur Squamous Epith Cells Moderate A (None-Few) Urine Bacteria Moderate A (None) SARS-CoV-2 (PCR) (Negative) Influenza Type A (PCR) (Negative) Influenza Type B (PCR) (Negative) RSV (PCR) (Negative) POC Troponin I (0.01-0.04) ng/ml <Josselin Sarmiento MD - Last Filed: 02/10/25 09:38> ECG Data Attestation: I personally reviewed and interpreted this ECG as follows: <Josselin Sarmiento MD - Last Filed: 02/10/25 09:38> Discharge Plan Discharge Clinical Impression: Malaise, Palpitation <Ish T Felix, MD - Last Filed: 02/15/25 23:39> Patient Disposition: Home, Self-Care <Ish Felix MD - Last Filed: 02/15/25 23:39> Condition: Stable <Ish Felix MD - Last Filed: 02/15/25 23:39> Additional Instructions: Recommend Pepcid or Zantac for the next few days to settle your stomach. Both can be purchased [id number]. Recommend you follow-up with your primary care provider to discuss your symptoms. May consider doing a quality assurance monitor chassis for a couple of weeks to make sure you are not having any abnormal cardiac rhythms, however, you should be reassured by the fact that your heart rhythm was normal while you were in the emergency department. <Ish Felix MD - Last Filed: 02/15/25 23:39> Follow Up/Referrals: Ada Beltrán MD [Primary Care Provider] - <Ish Felix MD - Last Filed: 02/15/25 23:39> Stand Alone Forms: My[facility] Info Instructions <Ish Felix MD - Last Filed: 02/15/25 23:39>
--- OUTSIDE RECORDS SUMMARY | 2025-02-10 07:11 | XMS_ITS | Clinical Summary ---
Author Organization [facility] Address [address] [place] [address] Care Team Providers Care Financial Advisor Name Role Phone Elsewhere, Pcp Primary Care Provider Unavailabl e Source Comments Patient records contain information from all sites at [facility]. For routine questions regarding patient records, call [phone] during business hours, M-F 8:00 AM - 5:00 PM Central Time. Record requests for emergency care only can be directed to [phone] at any time.[facility] Allergies Active Allergy Reactions Criticality Noted Date Comments Hymenoptera Allergenic Extract Other (see comments) 09/30/2007 Bee stings Omeprazole Nausea Only 07/12/2021 Medications betamethasone dipropionate, augmented, (Diprolene) 0.05 % cream Apply 1 Application topically as needed. 3 Active clobetasoL (Cormax) 0.05 % external solution Apply 1 Application topically as needed. 4 Active famotidine (Pepcid) 20 mg tablet Take 20 mg by mouth 2 (two) times a day as needed. 4 Active ketoconazole (Nizoral) 2 % shampoo Apply 1 Application topically 2 (two) times a week. 4 Active meclizine (Antivert) 25 mg tablet Take 25 mg by mouth 3 (three) times a day as needed. 4 Active ibuprofen 400 mg tablet Take 400 mg by mouth as needed for pain. Active acetaminophen (TylenoL) 500 mg capsule Take 1,000 mg by mouth as needed for pain. Active multivitamin (Multiple Vitamins) tablet Take 1 tablet by mouth daily. Active calcium carbonate-vitam in D3 (Calcium 500 With D) 500 mg-10 mcg (400 unit) tablet Take 1 tablet by mouth daily. Active magnesium 200 mg tablet Take 200 mg by mouth daily before morning meal. Active cyanocobalamin (vitamin B-12) 1,000 mcg tablet Take 1,000 mcg by mouth daily. Active Encounters Date Type Department Care Team Description 12/09/2024 3:00 PM [employer]ECTIVE [employer]ING ISSUER Comprehensive Visit Department of Physical Medicine and Rehabilitation in [address] [address] Wing Story M.D. Malecha, Maggie J, Dayo.H.Wagner., O.T. Pain Thumb Right 12/09/2024 1:30 PM [employer]IVE [employer]ING ISSUER Comprehensive Visit Department of Orthopedic Surgery in [address] [phone] Wing Story M.D. Pain Thumb Right (Primary Dx) 12/09/2024 11:42 AM PROTECTIVE [employer]OTHING ISSUER - 12/09/2024 11:59 PM [employer]ECTIVE [employer]OTHING ISSUER Hospital Encounter Department of Radiology, [facility] in [address] [address] Shavon Moses APRN, C.N.P., M.S. Pain Thumb Right Discharge Disposition: Home or Self Care 12/09/2024 11:42 AM PR[employer]ECTIVE [employer]OTHING ISSUER - 12/09/2024 11:59 PM [employer]ECTIVE [employer]OTHING ISSUER Hospital Encounter Department of Radiology, [facility], in [address] [phone] Shavon Moses APRN, C.N.P., M.S. Pain Thumb Right Discharge Disposition: Home or Self Care 12/07/2024 11:15 AM PROTECTIVE [employer]OTHING ISSUER Clinical Communication Virtual Review in [address] [phone] Pre-visit Intake from Last 3 Months Family History Medical History Relation Name Comments Sleep apnea Brother 1 Marcello Alcohol abuse Brother 2 Jean Carlos Dementia Father Herb Other cancer Father's Sister Delia glioblastoma Hypertension Maternal Grandmother Safia Transient ischemic attack Maternal Grandmother Safia Arthritis Mother Rasheeda Dementia Mother Rasheeda Parkinson disease Paternal Grandfather Chintan Gestational diabetes Sister Melissa Migraines Son Esequiel Relation Name Status Comments Brother 1 Marcello Alive Brother 2 Jean Carlos Alive Father Herb Alive Father's Sister Delia Alive Maternal Grandmother Safia Alive Mother Rasheeda Alive Paternal Grandfather Chintan Alive Sister Melissa Alive Son Esequiel Alive Social History Tobacco Use Types Packs/Day Years Used Date Smoking Tobacco: Never Passive Smoke Exposure: Past Smokeless Tobacco: Never Alcohol Use Standard Drinks/Week Comments Not Currently 0 (1 standard drink = 0.6 oz pur e alcohol) [facility] Utilities Answer Date Recorded In the past 12 months has e electric, gas, oil, or water company threatened to shut off services in your home? No 12/05/2024 Exercise Vital Sign Answer Date Recorde d On average, how many days pe r week do you engage in moderate to strenuous exercise (like a brisk walk)? 2 days 12/05/2024 On average, how many minutes do you engage in exercise at this level? 20 min 12/05/2024 Hunger Vital Sign Answer Date Recorded Within the past 12 months, y ou worried that your food would run out before you got the money to buy more. Never true 12/05/19 Within the past 12 months, t he food you bought just didn't last and you didn't have money to get more. Never true 12/05/2024 PRAPARE - Transportation Answer Date Re corded In the past 12 months, has l ack of transportation kept you from medical appointments or from getting medications? No 11/17 In the past 12 months, has l ack of transportation kept you from meetings, work, or from getting things needed for daily living? No 12/05/2024 Nutrition Answer Date Recorded On average, how many serving s of fruits and vegetables do you eat per day (serving size is equal to 1 cup or approximately the size of a tennis ball)? 3-5 12/05/2024 Dental Answer Date Recorded Dental: Regular Dentist Yes 12/05/19 Employment Answer Date Recorded Employment status Retired 12/05/2024 Housing Stability Answer Date Recorded What is your living situation today? I have a [facility] place to live 12/05/2024 Comments Unknown Sex and Gender Information Value Date Recorded Sex Assigned at Female 12/07/2024 10:37 AM [employer]IVE [employer]UER Legal Sex Female 8:25 AM CDT Gender Identity Female 12/07/2024 10:37 AM [employer]ECTIVE [employer] ISSUER Sexual Orientation Straight 12/07/2024 10 :37 AM [employer]ECTIVE [employer] ISSUER Plan of Treatment Health Maintenance Due Date Last Done Comments CT Colonography 1955 Cologuard 1955 FIT 1955 Hepatitis C Screening 1955 Pneumococcal vaccine (50+ years) (1 of 1 - PCV) 2006 Zoster Vaccines (2 of 2) 02/10/2020 12/16/2019 COVID-19 Vaccine (3 - season) 2024 02/20/2021, 01/23/2021 Influenza Vaccine (#1) 2024 08/04/2023, 2006 Depression Screening (Annual PHQ-2) 11/16/2024 Fall Risk Screen (Annual) 11/16/2024 Mammogram 08/30/2025 08/30/2024, 08/16, 07/02/2023, Additional history exists Fasting Glucose for Diabetes Screening 10/28/2026 10/28/2023, 11/22/2019 DTaP,Tdap,and Td Vaccines (3 - Td or Tdap) 09/03/2033 09/03/2023, 09/30/2007 Colonoscopy 02/18/2034 02/19/2024 Colorectal Cancer Screening 02/18/2034 Bone Density Scan (Osteoporosis Screen) Discontinued 07/16/2021 IPV Vaccines Aged Out No longer eligi ble based on patient's age to complete this topic Medical Devices Implanted Type Area Ems Instructor Device Identifier Shelf Expiration Date Model / Serial / Lot Hardware E.G. Pins/Screws/R ods Right Knee Hardware e.g. pins/screws/ rods Right: Knee Misc Other Right Schoulder Anchors Misc Other Right: Shoulder Procedures Procedure Name Priority Date/Time Associated Diagnosis Comments DX WRIST RIGHT PA AND LATERAL WITH TILT LATERAL 3 VIEWS RAD - Routine (most inpatients and all outpatients) 12/09/2024 12:21 PM [employer]IVE [employer] ISSUER Pain Thumb Right DX THUMB RIGHT RAD - Routine (most inpatients and all outpatients) 12/09/2024 12:20 PM [employer]IVE [employer] ISSUER Pain Thumb Right from Last 3 Months Results * DX Wrist Right PA and Lateral with Tilt Lateral 3 Views (12/09/2024 12:21 PM PROTECTIVE [employer]OTHING ISSUER) Anatomical Region Laterality Modality Upper Extremity, Wrist, Musc uloskeletal RST LOS, Musculoskeletal ARZ LOS, Muskuloskeletal FLA LOS Right Digit al Radiography Impressions 12/09/2024 12:48 PM [employer]IVE [employer]OTHING ISSUER 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 Mild scattered degenerative arthritis elsewhere in the wrist and thumb. 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 Slight ulnar positive variance. Narrative 12/09/2024 12:48 PM PROTECTIVE [employer]OTHING ISSUER EXAM: DX THUMB RIGHT, DX WRIST RIGHT PA AND LATERAL WITH TILT LATERAL 3 VIEWS Procedure Note Kathy Chang M.D. 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 Mild scattereddegenerative arthritis elsewhere in the wrist and thumb. 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 Slight ulnar positivevariance. Shavon Moses APRN C.N.P., M.S. 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 Mild scattered degenerative arthritis elsewhere in the wrist and thumb. 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 Slight ulnar positive variance. Narrative 12/09/2024 12:48 PM PROTECTIVE [employer]OTHING ISSUER EXAM: DX THUMB RIGHT, DX WRIST RIGHT PA AND LATERAL WITH TILT LATERAL 3 VIEWS Procedure Note Kathy Chang M.D. 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 Mild scattereddegenerative arthritis elsewhere in the wrist and thumb. 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 Slight ulnar positivevariance. Shavon Moses APRN, C.N.P., M.S. IMG DIAGNOSTI C IMAGING PROCEDURES Final Result from Last 3 Months Insurance MEDICARE [facility] Care Teams Financial Advisor Relationship Specialty Start Date End Date Elsewhere, Pcp PCP - General Internal Medicine 12/07/24
--- OUTSIDE RECORDS SUMMARY | 2025-02-10 07:12 | XMS_ITS | Clinical Summary ---
Author Organization [facility] Address [address] [place] [id number] Care Team Providers Care Consulting Nurse Name Role Phone Ada Beltrán MD Primary Care Provide r Allergies Active Allergy Reactions Criticality Noted Date Comments Hymenoptera Allergenic Extract 09/30 Omeprazole Nausea Only 07/12/2021 Medications betamethasone, augmented dipropianate 0.05% (Diprolene AF) 0.05 % creamIndications: Dyshidrotic eczema Apply topically to affected area(s) two times daily. 45 g 2 3 Active meclizine (ANTIVERT) 25 mg tabletIndications :Vestibular migraine Take 1 Tablet (25 mg) by mouth 3 times daily if needed for Vertigo. 20 Tablet 3 4 Active clobetasol (TEMOVATE) 0.05 % creamIndications: Lichen sclerosus Apply topically to affected area(s) two times daily. 45 g 2 4 Active famotidine (PEPCID) 20 mg tabletIndications :Chronic GERD Take 1 Tablet (20 mg) by mouth 2 times daily if needed for Heartburn. 4 Active benzonatate (TESSALON) 200 mg capsuleIndication s:Acute cough Take 1 Capsule (200 mg) by mouth 3 times daily if needed for Cough. 21 Capsule 5 Active Active Problems Problem Noted Date Diagnosed Date Uterine leiomyoma 03/27/2016 External hemorrhoid 08/24/2014 Rectocele 08/24/2014 Dermatitis 09/30/2007 Overview (09/30/2007): severe dyshydrotic eczema ASCUS of cervix with negative high risk HPV 03/16 Overview (12/01/2019): 03/2005 ASCUS/HPV negative 09/2007 NIL 09/2011 NIL 03/2014 NIL 11/2019 NIL/HPV negative Plan: Routine screening Resolved Problems Problem Noted Date Diagnosed Date Resolved Date Routine adult health maintenance 05/04/2014 08/24/2014 Overview (05/04/2014): Colonoscopy 04/2014 normal repeat in 10 years Dermatophytosis of scalp and kong 09/30/2007 01/25/2009 Encounters Date Type Department Care Team Description 11/21/2024 12:50 PM OPERATIONS VOCATIONAL INSTRUCTOR Office Visit [facility] [address] [place] [phone] Amanda Thapa, TREASURE Throat Problem; Cough; Conjunctivitis (bilateral) 11/21/2024 Travel 11/21/2024 Telephone [facility] [address] [place] [address] Ada Beltrán MD Questions (Appointment Request) from Last 3 Months Immunizations Immunization Administration Dates Next Due COVID-19 vaccine (Moderna 100mcg/0.5mL) PF MDV 02/20/2021,01/23/2021 Influenza, IIV3 (Age >=3 years) 09/30/2007 Influenza, Inactivated AIIV4 (Age 65+ Years) Preserv Free 08/04/2023 RSV, Recombinant ADJ Reconst ituted (Arexvy 120MCG/0.5mL) 10/30/2023 Td (Age >=7 Years) 09/30/1996 Tdap 09/03/2023,09/30/2007 Zoster (Shingrix-RZV, recombinant) 12/16/2019 Family History Medical History Relation Name Comments Alzheimer's disease Father alzheime rs GI Disease Father diverticulitis Hypertension Maternal Grandmother quite s evere Genitourinary Disease Mother hyster ectomy for fibroids Cancer-breast Other Male first cou sin, maternal, paternal 2x cousin female GI Disease Sister 1 ulcerative coli tis Genitourinary Disease Sister 2 hyster ectomy for fibroids Cancer-ovarian No Family History Relation Name Status Comments Father (Age 89) Maternal Grandmother Mother Alive Other Sister 1 Sister 2 Social History Tobacco Use Types Packs/Day Years Used Date Smoking Tobacco: Never Smokeless Tobacco: Never Tobacco Cessation:Counseling Given: Yes Alcohol Use Standard Drinks/Week Comments No 0 (1 standard drink = 0.6 oz pur e alcohol) PHQ-2 Answer Date Recorded PHQ-2 TOTAL SCORE 0 08/23/2024 Social Connections Answer Date Recorded Do you often feel lonely or isolated from those around you? 0 08/23/2024 Financial Resource Strain Answer Date R ecorded Difficulty of Paying Living Expenses 3 08/23/2024 Difficulty of Paying Living Expenses Not on file 08/23/2024 Food Insecurity Answer Date Recorded Do you worry your food will run out before you are able to buy more? 1 08/23/2024 Transportation Needs Answer Date Record ed Does lack of transportation keep you from medica l appointments? 1 08/23/2024 Does lack of transportation keep you from work, meetings or getting things that you need? 1 08/23/2024 Housing Stability Answer Date Recorded What is your housing situation today? 1 08/23/2024 Utilities Answer Date Recorded Do you have trouble paying f or utilities (for example, heat, electricity, water, phone)? 1 08/23/2024 Comments No Sex and Gender Information Value Date Recorded Sex Assigned at Not on file Legal Sex Female 5:25 AM OPERATIONS VOCATIONAL INSTRUCTOR Gender Identity Not on file Sexual Orientation Not on file Obstetrics History Para Term AB IAB SAB Ectopic Multiple Livin g Live Births 3 3 3 3 Date Outcome GA Total Labor Labor/2nd/3rd Weight Sex Type Anes PTL Shirley A1 A5 Name Clin Term Term Term Last Filed Vital Signs Vital Sign Reading Time Taken Comments Blood Pressure 161/68 11/21/2024 1:53 PM OPERATIONS VOCATIONAL INSTRUCTOR Pulse 95 11/21/2024 1:53 PM OPERATIONS VOCATIONAL INSTRUCTOR Temperature 36.3 C (97.4 F) 11/21/2024 1:53 PM OPERATIONS VOCATIONAL INSTRUCTOR Respiratory Rate 20 11/21/2024 1:53 PM OPERATIONS VOCATIONAL INSTRUCTOR Oxygen Saturation 96% 11/21/2024 1:53 PM OPERATIONS VOCATIONAL INSTRUCTOR Inhaled Oxygen Concentration - - Weight 75.8 kg (167 lb) 11/21/2024 1:53 PM OPERATIONS VOCATIONAL INSTRUCTOR Height 165.7 cm (5' 5.25) 08/23/2024 1:30 PM CD T Body Mass Index 27.58 08/23/2024 1:30 PM CDT Plan of Treatment Health Maintenance Due Date Last Done Comments Pneumococcal series for age 50+ (1 of 1 - PCV) 2006 Zoster (shingles) series for age 50+ (2 of 2) 02/10/2020 12/16/2019 COVID-19 vaccine series ( season) 2024 08/20/2023, 10/12/2022, 04/02/2022, Additional history exists Influenza Vaccine (#1) 2024 08/04/2023, 2006 BMI (ht and wt on same day) for age 18+ 08/23/2025 08/23/2024, 08/04/2023, 02/24/2022, Additional history exists Depression screening for age 12+ 08/24/2025 08/24/2024, 08/23/2024, 08/04/2023, Additional history exists Medicare Wellness for age 65+ 08/24/2025, 08/04/2023, 07/12/2021 Mammogram for age 45-75 08/30/2025 08/30/20 24, 07/02/2023, 07/16/2021, Additional history exists Lipids for age 45-75 10/28/2028 10/28/2023, 07/12/2021, 11/22/2019, Additional history exists Tetanus booster 09/03/2033 09/03/2023, 09/16, 09/30/1996 Colonoscopy through age 75 02/18/203402/18, 02/19/2024, 02/19/2024, Additional history exists Hepatitis C screening for ag e 18-79 Completed 07/12/2021 DEXA/DXA scan for age 65+ Completed 07/16/2021 Tdap Completed 09/03/2023, 09/30/2007 RSV vaccine for adults or Completed 10/30/2023 Goals Goal Patient Goal Type Associated Problems Recent Progress Patient-Stated? Author BLOOD PRESSURE - Maintains BP less than 140/90 Blood Pressure No Renata Georges LPN Procedures Procedure Name Priority Date/Time Associated Diagnosis Comments STREP A PCR STAT 11/21/2024 2:00 PM OPERATIONS VOCATIONAL INSTRUCTOR Sore throat THROAT RAPID STREP A WITH REFLEX STAT 11/21/2024 2:00 PM OPERATIONS VOCATIONAL INSTRUCTOR Sore throat XR MAMMO SEFERINO BILAT SCREEN Routine 08/30/2024 11:26 AM CDT Visit for screening mammogram COLONOSCOPY SCREENING Routine 02/19/2024 9:34 AM CDT Screening for colon cancer LIPID PANEL W REFLEX MEASURED LDL Routine 10/28/2023 9:12 AM OPERATIONS VOCATIONAL INSTRUCTOR Screening, lipid XR DXA BONE DENSITY 2 SITES AXIAL Routine 07/16/2021 10:03 AM CDT Menopause ANTI HCV Routine 07/12/2021 11:30 AM CDT Encounter for hepatitis C screening test for low risk patient from Last 3 Months or Most Recently Relevant to Health Maintenance Results * STREP A PCR (11/21/2024 2:00 PM OPERATIONS VOCATIONAL INSTRUCTOR) Pathologist [facility] GROUP A STREP Negative 11/22/2024 3:01 AM OPERATIONS VOCATIONAL INSTRUCTOR [facility] Throat SPECIMEN FROM THROAT / Unknown Non-Blood / Unknown 11/21/2024 2:00 PM OPERATIONS VOCATIONAL INSTRUCTOR 11/21/2024 2:37 PM OPERATIONS VOCATIONAL INSTRUCTOR us Raul Mahmood MICROBIOLOGY Final Result [facility] [address] [place] [address], * THROAT RAPID STREP A WITH REFLEX (11/21/2024 2:00 PM OPERATIONS VOCATIONAL INSTRUCTOR) STREP A ANTIGEN Negative 11/21/2024 2:37 PM OPERATIONS VOCATIONAL INSTRUCTOR [facility] Comment:PCR to follow. Throat SPECIMEN FROM THROAT / Unknown Non-Blood / Unknown 11/21/2024 2:00 PM OPERATIONS VOCATIONAL INSTRUCTOR 11/21/2024 2:19 PM OPERATIONS VOCATIONAL INSTRUCTOR us Raul Mahmood MICROBIOLOGY Final Result [facility] [address] [place] [address] * XR MAMMO SEFERINO BILAT SCREEN (08/30/2024 11:26 AM CDT) Anatomical Region Laterality Modality BREASTS, Breast Left, Breast Right Bilateral Mammography Impressions 08/30/2024 2:58 PM CDT There is no radiographic evidence for malignancy. Recommend annual mammograms. MAMMOGRAM ASSESSMENT: ACR 1 Negative PATIENTS: You will also receive a letter with your examination results in an easy to read format. If you have questions about your results, please contact your referring provider. Narrative 08/30/2024 2:58 PM CDT For Patients: As a result of the Cures Act, medical imaging exams and procedure reports are released immediately into your electronic medical record. You may view this report before your referring provider. If you have questions, please contact your health care provider. XR MAMMO SEFERINO BILAT SCREEN [[id number]] CLINICAL HISTORY: This is an asymptomatic 69 y.o. patient. INDICATION FOR EXAM: Mammogram Screening. TECHNIQUE: CC & MLO views were obtained. This study was evaluated with the assistance of Computer-Aided Detection. Breast Tomosynthesis was used in interpretation. COMPARISON FILM: Yes 07/02/23 [facility] 07/16/21 [facility] FINDINGS: There are scattered areas of fibroglandular density. There are no dominant masses, suspicious micro calcifications or areas of architectural distortion. us Ada Beltrán MD MAMMO Final Result * COLONOSCOPY (02/19/2024 9:49 AM CDT) 02/19/2024 9:49 AM CDT Narrative Transcriptions David Conroy MD - 02/19/2024 11:07 AM CDT Patient Name: Elaina Valenzuela Procedure Date: 02/19/2024 Gender: Female Date of : 1955 Admit Type: Ambulatory Procedure: Colonoscopy Proceduralist: David Conroy MD , Yaneth Frias RN (Nurse), Deisy Darden (Nurse) Indications/Pre-Op Diagnosis: Screening for colorectal malignant neoplasm, Last colonoscopy: April 2014 Medications: Fentanyl 100 micrograms IV, Midazolam 4 mgIV, The level of sedation administered wasmoderate Procedure Description: The patient had risks, benefits and alternatives explained to andgave informed consent. The patient had a stable cardiopulmonary status and judged an adequate candidate for conscious sedation. The PCF-H190L [id number] was passed through the anus and advanced to 3cm into the ileum. The colonoscopy was performed without difficulty. The patient tolerated the procedure well. The quality of the bowel preparation was good. The terminal ileum, ileocecal valve,appendiceal orifice, and rectum were photographed. Complications: No immediate complications. Estimated Blood Loss & Specimen: Estimated blood loss: none. Specimen collected - None Findings: The perianal exam findings include mild rectal prolapse. The terminal ileum appeared normal. Non-bleeding internal hemorrhoids were found. The hemorrhoids weremild. A few small-mouthed diverticula were found in the sigmoid colon. The exam was otherwise without abnormality on direct and retroflexion views. Impressions/Post-Op Diagnosis: - Mild rectal prolapse. found on perianal exam. - The examined portion of the ileum was normal. - Non-bleeding internal hemorrhoids. - Diverticulosis in the sigmoid colon. - The examination was otherwise normal on direct and retroflexionviews. - No specimens collected. Recommendation: - Patient has a contact number available for emergencies. The signsand symptoms of potential delayed complications were discussed with the patient. Return to normal activities tomorrow. Written discharge instructions were provided to the patient. - Resume previous diet. - Continue present medications. - Repeat colonoscopy in 10 years for screening purposes. Moderate Sedation: A time out was performed before the procedure. Moderate (conscious) sedation was administered by the endoscopy nurse and supervised bythe endoscopist. The following parameters were monitored: oxygensaturation, heart rate, blood pressure, EKG, CO2, respiratory rate, adequacy of pulmonary ventilation and reponse to care. Please refer to the patient's medical record flowsheets and nursing notes for moderate sedation details. Total physician intraservice time was 28 minutes. David Conroy MD 02/19/2024 11:07:32 AM This report has been signed electronically. Note Initiated On: 02/19/2024 9:49 AM Procedure Code(s): --- Professional --- 88794, Colonoscopy, flexible; diagnostic, including collection of specimen(s) bybrushing or washing, when performed (separateprocedure) Diagnosis Code(s): --- Professional --- Z12.11, Encounter for screening formalignant neoplasm of colon K64.8, Other hemorrhoids K57.30, Diverticulosis of large intestine without perforation or abscess withoutbleeding CPT copyright 2021 [employer] [place] [employer]. All rights reserved. The codes documented in this report are preliminary and upon application specialist reviewmay be revised to meet current compliance requirements. Scope In: 10:36:39 AM Scope Withdrawal Time 0 hours 8 minutes 28 seconds Scope Out: 10:52:42 AM us David Conroy MD PROCEDURE ORD Final Res ult * (ABNORMAL) LIPID PANEL W REFLEX MEASURED LDL (10/28/2023 9:12 AM OPERATIONS VOCATIONAL INSTRUCTOR) CHOLESTEROL,TOTAL 262(H) 100 - 199 mg/dL 10/28/2023 5:38 PM OPERATIONS VOCATIONAL INSTRUCTOR [facility] Comment: Cholesterol, Total Reference Ranges Desirable <200 mg/dL Borderline 200-239 mg/dL High >=240 mg/dL TRIGLYCERIDES 73 <150 mg/dL 10/28/2023 5:38 PM [facility] HDL CHOLESTEROL 61 >40 mg/dL 5:38 PM [facility] NON-HDL CHOLESTEROL 201(H) <145 mg/dl 10/28/2023 5:38 PM [facility] CHOL/HDL RATIO 4.30 <4.50 10/28/2023 5:38 PM OPERATIONS VOCATIONAL INSTRUCTOR [facility] LDL CHOLESTEROL 186(H) <=130 mg/dL 10/28/2023 5:38 PM [facility] VLDL CHOLESTEROL 15 <=30 mg/dL 10/28/2023 5:38 PM [facility] PROVIDER ORDERED STATUS RANDOM 10/28/2023 5:38 PM [facility] Blood BLOOD SPECIMEN / Unknown Venipuncture / Unknown 10/28/2023 9:12 AM OPERATIONS VOCATIONAL INSTRUCTOR 10/28/2023 9:13 AM [facility] us Ada Beltrán MD CHEMISTRY Final Result [facility] [address] [address], * (ABNORMAL) XR DXA BONE DENSITY 2 SITES AXIAL [99303.1] (07/16/2021 10:03 AM CDT) Anatomical Region Laterality Modality Spine, HIPS, HIPL, HIPR Other Impressions 07/16/2021 1:48 PM CDT Normal bone density. RECOMMENDATIONS: The National Osteoporosis Foundation recommends pharmacologic treatment for patients with T-scores of -2.5 or less, patients with prior history of fragility fractures, or patients with 10-year probability of greater than 3% at hips or greater than 20% of suffering major osteoporotic fractures. Recommend continued optimization of calcium and vitamin D intake through dietary means and/or supplementation and regular exercise. Repeat scan recommended in 3-5 years. Lori Parish PA-C [facility] 07/16/2021 Narrative 07/16/2021 1:48 PM CDT For Patients: Results are automatically released to your [facility] ([employer]) account once available, in compliance with federal regulations. This means that you may see your results before your provider has had a chance to review them. Please allow 2-3 business days for your provider to comment on the results. XR DXA Bone Mineral Density (BMD) EXAM LOCATION: [address] [address] PATIENT NAME: Elaina Valenzuela DATE OF : 1955 EXAM DATE: 07/16/2021 REQUESTING PROVIDER: Ada Beltrán MD GENDER AT : female HEIGHT: 5' 6 (07/12/2021) WEIGHT: 166 lb (07/12/2021) MENOPAUSAL STATUS: Postmenopausal RACE/ETHNICITY: White RISK FACTORS: Family History of Hip Fracture (parental) and White Race CURRENT MEDICATION FOR BONE LOSS: NONE INDICATION: Initial scan for screening COMPARISON DATE(S): None DXA scans are compared to prior studies for a patient only when the two (or more) studies were performed on the same scanner. It is not possible to compare data generated on one scanner to data from another because there are not standards in DXA equipment. This applies even if the two scanners are made by the same coordinator cardiopulmonary services. PROCEDURE: Dual-energy x-ray absorptiometry performed with routine technique. Reporting is completed in the form of a T-score. The T-score represents the standard deviation from peak bone mass based on young healthy adult. A Z-score is used for diagnosis in premenopausal women, and for men under the age of 50. FINDINGS: RESULT LUMBAR SPINE L1, L2, L4 BMD: 1.260 g/cm2 T-Score: + 0.6 Z-Score: + 1.9 RESULT TOTAL FEMUR Bilateral Femoral Neck BMD: 1.006 g/cm2 Bilateral Total Femur BMD: 0.983 g/cm2 RESULT FEMORAL NECK Right Femoral Neck T-Score: - 0.2 Left Femoral Neck T-Score: - 0.2 Right Femoral Neck Z-Score: + 1.0 Left Femoral Neck Z-Score: + 1.0 RESULT TOTAL HIP Total mean Hip T-Score: - 0.2 Total mean Hip Z-Score: + 0.8 WHO criteria: Normal: T-score at or above -1 SD Osteopenia: T-score between -1.1 and -2.4 SD Osteoporosis: T-score at or below -2.5 SD Ada Beltrán MD DEXA Final Result * ANTI HCV (07/12/2021 11:30 AM CDT) HEPATITIS C ANTIBODY Non-React gemini Non-React gemini 07/12/2021 9:30 PM CDT [facility] Comment:Antibodies to HCV no t detected; does not exclude the possibility of exposure to HCV. Blood BLOOD SPECIMEN / Unknown Venipuncture / Unknown 07/12/2021 11:30 AM CDT 07/12/2021 11:30 AM CDT Ada Beltrán MD SEND OUTS Final Result [facility] [address] [place] [address], [place] from Last 3 Months or Most Recently Relevant to Health Maintenance Insurance [facility] MEDICARE [place] ONLY MEDICARE PART B [place] ONLY MEDICARE PART A [place] ONLY Advance Directives * Full Code (Latest Code Status on File) Date Activated Date Inactivated Comments 09/05/2014 10:01 AM 09/05/2014 10:16 PM Care Teams Consulting Nurse Relationship Specialty Start Date End Date Ada Beltrán MD [address] [place] [address] PCP - General Family Practice 06/17/12
--- NOTE | 2025-02-10 07:24 | CRLHL7_ITS ---
For Patients: As a result of the Century Cures Act, medical imaging exams and procedure reports are released immediately into your electronic medical record. You may view this report before your referring provider. If you have questions, please contact your health care provider. INDICATION: Headache and malaise TECHNIQUE: CT head without contrast. COMPARISON: Head CT 06/08/2021 FINDINGS: CSF spaces: Within normal limits for age. Brain parenchyma: The montesinos-white differentiation is normal. No sign of mass, hemorrhage, or midline shift. Skull base and calvarium: The visualized paranasal sinuses and mastoid air cells demonstrate no acute or significant findings. The visualized orbits are grossly unremarkable. No skull fractures. IMPRESSION: Unremarkable noncontrast head CT. Please note that all CT scans at this facility use dose modulation, iterative reconstruction, and/or weight-based dosing when appropriate to reduce radiation dose to as low as reasonably achievable. Dictated by Byron Delgado MD @ 02/10/2025 8:17:53 AM (Electronically Signed)
[2025-02-10 07:47] LABS: HCO3 VBG 28 mmol/L (21-28); PCO2 VBG 44 mmHG (40-50); PO2 VBG 72.3 mmHG (25-47); pH VBG 7.408 (7.32-7.43)
[2025-02-10 07:48] LABS: Basophils Absolute Auto 0.03 K/uL (0.00-0.30); Basophils Percent Auto 0.4 % (0.0-3.0); Eosinophils Absolute Auto 0.09 K/uL (0.00-0.50); Eosinophils Percent Auto 1.1 % (0.0-7.0); Hematocrit 38.6 % (33.0-51.0); Hemoglobin* 12.9 gm/dL (12.0-16.0); Immature Granulocytes Abs Auto 0.01 K/uL (0.00-0.30); Immature Granulocytes Pct Auto 0.1 %; Lymphocytes Percent Auto 14.7 % (20-44); Mean Corpuscular HGB Conc 33 gm/dL (32-36); Mean Corpuscular Hemoglobin 29 pg (26-34); Mean Corpuscular Volume 86 fL (80-100); Neutrophils Percent Auto 78.7 % (42.0-72.0); Platelet Count* 255 K/uL (140-440); RDW Coefficient of Variation % 12.8 % (11.5-15.5); Red Blood Count 4.49 m/uL (4.00-5.20); White Blood Count* 8.32 K/uL (4.50-11.00)
[2025-02-10 07:59] LABS: Albumin* 4.4 g/dL (3.3-5.0); Chloride* 102 mmol/L (96-114)
[2025-02-10 08:00] LABS: Potassium* 3.6 mmol/L (3.6-5.1); Sodium* 137 mmol/L (135-149)
[2025-02-10 08:02] LABS: Anion Gap 7 mEq/L (7-15); Blood Urea Nitrogen* 18 mg/dL (7-30); Carbon Dioxide* 28 mmol/L (20-32); Creatinine* 0.6 mg/dL (0.5-1.5); Est. Creatinine Clearance* 50.41; Estimated Glomerular Filt Rate 98 ml/min
[2025-02-10 08:03] LABS: Alanine Aminotransferase* 24 U/L (4-35); Alkaline Phosphatase* 75 U/L (40-150); Aspartate Amino Transferase* 32 U/L (12-35); Bilirubin Direct* 0.3 mg/dL (0.0-0.5); Bilirubin Total* 0.5 mg/dL (0.1-1.5); Glucose* 123 mg/dL (60-115); Magnesium* 1.7 mg/dL (1.5-2.6); Total Protein* 7.2 g/dL (6.0-8.3)
[2025-02-10 08:22] LABS: PCR FLU A Negative PCR FLU A (Negative); PCR FLU B Negative PCR FLU B (Negative); PCR RSV Negative PCR RSV (Negative); SARS PCR* Negative SARS-CoV-2 (Negative)
[2025-02-10 08:28] LABS: Slide Review Reflex No
[2025-02-10 08:44] LABS: Appearance Urine Clear (Clear); Bilirubin Urine Negative (Negative); Blood Urine Trace-intact (Negative); Color Urine Yellow (Yellow); Glucose Urine Negative (Negative); Ketones Urine Negative (Negative); Leukocyte Esterase Urine Trace (Negative); Nitrite Urine Negative (Negative); Protein Urine Negative (Negative); Urobilinogen Urine 0.2 (0.2-1.0); pH Urine 6.5 (5.0-8.5)
--- OUTSIDE RECORDS SUMMARY | 2025-02-10 08:45 | XMS_ITS | Clinical Summary ---
Author Organization [facility] Address [address] [place] [id number] Care Team Providers Care Front Man Name Role Phone Ada Beltrán MD Primary [...] Department Care Team Description 11/21/2024 12:50 PM FOREMAN/PROJECT MANAGER Office Visit [facility] [address] [place] [phone] Amanda Thapa, TREASURE Throat Problem; Cough; Conjunctivitis (bilateral) 11/21/2024 Travel 11/21/2024 Telephone [facility] [address] [place] [address] Ada Beltrán MD Questions (Appointment [...] on file Legal Sex Female 5:25 AM FOREMAN/PROJECT MANAGER Gender Identity Not on file Sexual Orientation Not on file Obstetrics History Para Term AB IAB SAB Ectopic Multiple Livin g Live Births 3 3 3 3 Date Outcome GA Total Labor Labor/2nd/3rd Weight Sex Type Anes PTL Shirley A1 A5 Name Clin Term Term Term Last Filed Vital Signs Vital Sign Reading Time Taken Comments Blood Pressure 161/68 11/21/2024 1:53 PM FOREMAN/PROJECT MANAGER Pulse 95 11/21/2024 1:53 PM FOREMAN/PROJECT MANAGER Temperature 36.3 C (97.4 F) 11/21/2024 1:53 PM FOREMAN/PROJECT MANAGER Respiratory Rate 20 11/21/2024 1:53 PM FOREMAN/PROJECT MANAGER Oxygen Saturation 96% 11/21/2024 1:53 PM FOREMAN/PROJECT MANAGER Inhaled Oxygen Concentration - - Weight 75.8 kg (167 lb) 11/21/2024 1:53 PM FOREMAN/PROJECT MANAGER Height 165.7 cm (5' 5.25) 08/23/2024 1:30 [...] STREP A PCR STAT 11/21/2024 2:00 PM FOREMAN/PROJECT MANAGER Sore throat THROAT RAPID STREP A WITH REFLEX STAT 11/21/2024 2:00 PM FOREMAN/PROJECT MANAGER Sore throat XR MAMMO SEFERINO BILAT SCREEN Routine 08/30/2024 11:26 AM CDT Visit for screening mammogram COLONOSCOPY SCREENING Routine 02/19/2024 9:34 AM CDT Screening for colon cancer LIPID PANEL W REFLEX MEASURED LDL Routine 10/28/2023 9:12 AM FOREMAN/PROJECT MANAGER Screening, lipid XR DXA BONE DENSITY 2 SITES AXIAL Routine 07/16/2021 10:03 AM CDT Menopause ANTI HCV Routine 07/12/2021 11:30 AM CDT Encounter for hepatitis C screening test for low risk patient from Last 3 Months or Most Recently Relevant to Health Maintenance Results * STREP A PCR (11/21/2024 2:00 PM FOREMAN/PROJECT MANAGER) Pathologist [facility] A STREP Negative 11/22/2024 3:01 AM FOREMAN/PROJECT MANAGER [facility] Throat SPECIMEN FROM THROAT / Unknown Non-Blood / Unknown 11/21/2024 2:00 PM FOREMAN/PROJECT MANAGER 11/21/2024 2:37 PM FOREMAN/PROJECT MANAGER us Raul Mahmood MICROBIOLOGY Final Result [facility] [address] [place] [address], * THROAT RAPID STREP A WITH REFLEX (11/21/2024 2:00 PM FOREMAN/PROJECT MANAGER) STREP A ANTIGEN Negative 11/21/2024 2:37 PM FOREMAN/PROJECT MANAGER [facility] Comment:PCR to follow. Throat SPECIMEN FROM THROAT / Unknown Non-Blood / Unknown 11/21/2024 2:00 PM FOREMAN/PROJECT MANAGER 11/21/2024 2:19 PM FOREMAN/PROJECT MANAGER us Raul Mahmood MICROBIOLOGY Final Result [facility] [address] [facility] [place] [address] * XR MAMMO SEFERINO BILAT SCREEN (08/30/2024 [...] care provider. XR MAMMO SEFERINO BILAT SCREEN [[id number]] CLINICAL HISTORY: This is an asymptomatic 69 y.o. patient. INDICATION FOR EXAM: Mammogram Screening. TECHNIQUE: CC & MLO views were obtained. This study was evaluated with the assistance of Computer-Aided Detection. Breast Tomosynthesis was used in interpretation. COMPARISON FILM: Yes 07/02/23 [facility] 07/16/21 [facility] FINDINGS: There are scattered areas of [...] adequate candidate for conscious sedation. The [id number] [id number] was passed through the anus and advanced [...] 9:49 AM Procedure Code(s): --- Professional --- 36153, Colonoscopy, flexible; diagnostic, including collection of specimen(s) bybrushing or washing, when performed (separateprocedure) Diagnosis Code(s): --- Professional --- Z12.11, Encounter for screening formalignant neoplasm of colon K64.8, Other hemorrhoids K57.30, Diverticulosis of large intestine without perforation or abscess withoutbleeding CPT copyright 2021 [employer]. All rights reserved. The codes documented in this report are preliminary and upon call center supervisor reviewmay be revised to meet current compliance requirements. Scope In: 10:36:39 AM Scope Withdrawal Time 0 hours 8 minutes 28 seconds Scope Out: 10:52:42 AM us David Conroy MD PROCEDURE ORD Final Res ult * (ABNORMAL) LIPID PANEL W REFLEX MEASURED LDL (10/28/2023 9:12 AM FOREMAN/PROJECT MANAGER) CHOLESTEROL,TOTAL 262(H) 100 - 199 mg/dL 10/28/2023 5:38 PM FOREMAN/PROJECT MANAGER [facility] Comment: Cholesterol, Total Reference Ranges Desirable <200 mg/dL Borderline 200-239 mg/dL High >=240 mg/dL TRIGLYCERIDES 73 <150 mg/dL 10/28/2023 5:38 PM [facility] HDL CHOLESTEROL 61 >40 mg/dL 5:38 PM [facility] NON-HDL CHOLESTEROL 201(H) <145 mg/dl 10/28/2023 5:38 PM [facility] CHOL/HDL RATIO 4.30 <4.50 10/28/2023 5:38 PM FOREMAN/PROJECT MANAGER [facility] LDL CHOLESTEROL 186(H) <=130 mg/dL 10/28/2023 5:38 PM [facility] VLDL CHOLESTEROL 15 <=30 mg/dL 10/28/2023 5:38 PM [facility] PROVIDER ORDERED STATUS RANDOM 10/28/2023 5:38 PM [facility] Blood BLOOD SPECIMEN / Unknown Venipuncture / Unknown 10/28/2023 9:12 AM FOREMAN/PROJECT MANAGER 10/28/2023 9:13 AM [facility] us Ada Beltrán MD CHEMISTRY Final Result [facility] [address] [address], * (ABNORMAL) XR DXA BONE DENSITY 2 SITES AXIAL [81584.1] (07/16/2021 10:03 AM CDT) Anatomical Region Laterality [...] recommended in 3-5 years. Lori Parish PA-C [facility] 07/16/2021 Narrative 07/16/2021 1:48 PM CDT For Patients: Results are automatically released to your [facility]) account once available, in compliance with federal regulations. This means that you may see your results before your provider has had a chance to review them. Please allow 2-3 business days for your provider to comment on the results. XR DXA Bone Mineral Density (BMD) EXAM LOCATION: [address] [address] PATIENT NAME: Elaina Valenzuela DATE OF : [...] two scanners are made by the same color finisher. PROCEDURE: Dual-energy x-ray absorptiometry performed with routine [...] gemini Non-React gemini 07/12/2021 9:30 PM CDT [facility] Comment:Antibodies to HCV no t detected; does not exclude the possibility of exposure to HCV. Blood BLOOD SPECIMEN / Unknown Venipuncture / Unknown 07/12/2021 11:30 AM CDT 07/12/2021 11:30 AM CDT Ada Beltrán MD SEND OUTS Final Result [facility] [address] [place] [address], [place] from Last 3 Months or Most Recently Relevant to Health Maintenance Insurance [facility] MEDICARE [place] ONLY MEDICARE PART B [place] ONLY MEDICARE PART A [place] ONLY Advance Directives * Full Code (Latest Code Status on File) Date Activated Date Inactivated Comments 09/05/2014 10:01 AM 09/05/2014 10:16 PM Care Teams Front Man Relationship Specialty Start Date End Date Ada Beltrán MD [address] [place] [address] PCP - General Family Practice 06/17/12
[2025-02-10 08:50] LABS: Bacteria Urine Moderate; RBC Urine 0-2 (0-2); Squamous Epithelial Cell Urine Moderate (None-Few); WBC Urine 0-2 (0-5)
[2025-02-10 08:59] LABS: Ammonia* < 8.7 umol/L (13.1-30.0)
== END 2025-02-10 09:52 | disposition home or self-care (01) ==
PROVIDERS: Emergency Provider Family Medicine; PCP Family Medicine
DX: R53.81 Other malaise (principal); R00.2 Palpitations
CPT/HCPCS: 36415; 70450; 80048; 80076; 81001; 82140; 82803; 83735; 84484; 85025; 87086; 87631; 99284